=== PATIENT | male | born 1960 | race Caucasian/White ===

== ENCOUNTER 2017-10-28 06:00 | Day surgery (SDC) | payer OTHER ==
[2017-10-28] MEDS ORDERED: LIDOCAINE 1% 2 ML INJ ID PRN (06:12)
[2017-10-28] MEDS ORDERED: LR 1,000 ML IV ONE (06:12)
[2017-10-28] MEDS ORDERED: LIDOCAINE 1% 2 ML INJ ONE (06:23)
--- NOTE | 2017-10-28 06:56 | PDANEPAE ---
ANE History of Present Illness 57 year old male w/ PMHx of HTN and HLD presents for inguinal hernia repair. ANE Past Medical History - Cardiovascular History Hx Hypertension: Yes Hx Arrhythmias: No Hx Chest Pain: No Hx Coronary Artery / Peripheral Vascular Disease: No Hx CHF / Valvular Disease: No Hx Palpitations: No - Pulmonary History Hx COPD: No Hx Asthma/Reactive Airway Disease: No Hx Recent Upper Respiratory Infection: No Hx Oxygen in Use at Home: No Hx Sleep Apnea: No Sleep Apnea Screening Result - Last Documented: Positive - Neurologic History Hx Cerebrovascular Accident: No Hx Seizures: No Hx Dementia: No - Endocrine History Hx Diabetes: No Hypothyroid: No Hyperthyroid: No Obesity: no - Renal History Hx Renal Disorders: No - Liver History Hx Hepatic Disorders: No - Neurological & Psychiatric Hx Hx Neurological and Psychiatric Disorders: No - Cancer History Hx Cancer: No - Congenital Disorder History Hx Congenital Disorders: No - GI History GERD: no Hx Gastrointestinal Disorders: Yes Gastrointestinal History Comment: polyp removed - Other Health History Other Health History: eye pressures being monitored r/t to increased pressure - Chronic Pain History Chronic Pain: No - Surgical History Prior Surgeries: colonoscopy ANE Review of Systems Review of systems is: negative Review of Systems: - Exercise capacity Exercise capacity: >=4 METS METS (RN): 6 METS ANE Patient History - Allergies Allergies/Adverse Reactions: No Known Allergies Allergy (Verified 10/16/17 11:20) - Home Medications Home medications: home medication list seen and reviewed Home Medications: Amlodipine Besylate 10/16/17 [Last Taken 10/27/17 08:00] Benazepril HCl 10/16/17 [Last Taken 10/27/17 08:00] Simvastatin 10/16/17 [Last Taken 10/27/17 20:00] Aspirin 81mg (*) 10/28/17 [Last Taken 10/21/17] - NPO status NPO Status: no food or drink >8 hours - Anes Hx Anes Hx: no prior problems - Smoking Hx Smoking Status: Never smoked Marijuana use: No - Alcohol Use Alcohol Use: Occasionally - Family Anes Hx Family Anes Hx: neg - N/A Family Hx Anesthesia Complications: none ANE Labs/Vital Signs - Vital Signs Vital Signs: reviewed preoperatively; see RN documention for details Height: 187.96 cm Weight: 82.554 kg ANE Physical Exam - Airway Neck exam: FROM Mallampati Score: Class 2 Mouth exam: normal dental/mouth exam - Pulmonary Pulmonary: no respiratory distress - Cardiovascular Cardiovascular: regular rate and rhythym - ASA Status ASA Status: II ANE Anesthesia Plan Anesthesia Plan: general endotracheal anesthesia Total IV Anesthesia: No
[2017-10-28] MEDS ORDERED: BUPIVACAINE 0.5% 30 ML SDV ONE (07:01)
[2017-10-28] MEDS ORDERED: MIDAZOLAM 2 MG/2 ML VIAL IVP ONE (07:08)
[2017-10-28] MEDS ORDERED: PROPOFOL 200 MG/20 ML VIAL ONE (07:16)
[2017-10-28] MEDS ORDERED: fentaNYL 100 MCG/2 ML INJ ONE (07:16)
[2017-10-28] MEDS ORDERED: LIDOCAINE 2% 5 ML SDV ONE (07:17)
[2017-10-28] MEDS ORDERED: ROCURONIUM 50 MG/5 ML VIAL ONE (07:17)
[2017-10-28] MEDS ORDERED: ONDANSETRON 4 MG/2 ML VIAL ONE (07:22)
[2017-10-28] MEDS ORDERED: SUGAMMADEX SODIUM 200 MG/2 ML VIAL IVP ONE (07:22)
[2017-10-28] MEDS ORDERED: DEXAMETHASONE 4 MG/ML VIAL ONE (07:22)
[2017-10-28] MEDS ORDERED: ceFAZolin 2 GM/SWFI 2 GM/20 ML SYR IVP ONE (07:27)
--- NOTE | 2017-10-28 07:28 | PDHPUP ---
History & Physical Update H&P update statement: This history and physical update is based on an assessment of the patient which was completed after admission or registration (within 24 hours), but prior to the surgery/procedure. H&P update: H&P reviewed & patient examined, no change in patient's condition since H&P completed
[2017-10-28] MEDS ORDERED: LR 500 ML IV PRN (07:41)
[2017-10-28] MEDS ORDERED: ONDANSETRON 4 MG/2 ML VIAL IVP PRN (07:41)
[2017-10-28] MEDS ORDERED: DIAZEPAM 5 MG/ML 1 ML SYR IVP PRN (07:41)
[2017-10-28] MEDS ORDERED: HYDROmorphONE/DILAUDID 1 MG/ML INJ IVP PRN (07:41)
[2017-10-28] MEDS ORDERED: oxyCODONE IR 5 MG TAB PO PRN (07:41)
[2017-10-28] MEDS ORDERED: fentaNYL 100 MCG/2 ML INJ IVP PRN (07:41)
[2017-10-28] MEDS ORDERED: ACETAMINOPHEN 500 MG TAB PO PRN (07:41)
[2017-10-28] MEDS ORDERED: NALOXONE HCL 0.4 MG/ML INJ IVP PRN (07:41)
--- NOTE | 2017-10-28 08:42 | POSTOPPROG ---
Post Op Note Date of Operation: 10/28/17 Surgeon: Magdiel Kenny Anesthesiologist: Dr. Lopez Anesthesia: GET(General Endotracheal) Pre-op Diagnosis: BIH Post-op Diagnosis: BIH Procedure: TEP BIHR Inf/Abcess present in the surg proc area at time of surgery?: No EBL: Minimal
[2017-10-28] MEDS ORDERED: oxyCODONE IR 5 MG TAB ONE (10:08)
[2017-10-28 10:23] VITALS: BP 128/83
--- NOTE | 2017-10-28 13:40 | GOP ---
[f rep st] OPERATIVE REPORT DATE OF OPERATION: 10/28/2017 SURGEON: Gm Kenny MD ANESTHESIA: General endotracheal anesthesia. ANESTHESIOLOGIST: Murray Lopez MD PREOPERATIVE DIAGNOSIS: Bilateral inguinal hernia. POSTOPERATIVE DIAGNOSIS: Bilateral inguinal hernia. PROCEDURE PERFORMED: Laparoscopic totally extraperitoneal bilateral inguinal hernia repair. FINDINGS: The patient had a moderate indirect and moderate lipoma on the left and a small indirect w ith a moderate lipoma on the right. ESTIMATED BLOOD LOSS: 20 cc. INDICATIONS: A 57-year-old male with a history of groin bulge. Risks and benefits of the procedure w ere discussed with the patient, questions were answered, and they wished to proceed. DESCRIPTION OF PROCEDURE: The patient was placed in the supine position. After the induction of adeq uate general endotracheal anesthesia, the patient was prepped and draped in the sterile surgical fash ion. Marcaine 0.5% was injected in the infra-umbilical area and a transverse incision was made, appro ximately 10 mm in length. This was carried down to the subcutaneous tissue with blunt dissection. The anterior fascia was exposed and incised just lateral to the midline. The preperitoneal space was the n created bluntly, and the balloon dissector introduced. Once this was appropriately positioned, it w as inflated under direct vision using the laparoscope. Once adequate dissection had been obtained, th e balloon was deflated and withdrawn. The balloon stabilizer was then placed into the same preperiton eal plane. The balloon stabilizer was then inflated. The preperitoneal space was then insufflated with carbon dioxide. Two more trocars were placed, both in the midline in the supraumbilical and mid lower abdomen sites. These were both placed under direct vision after injecting 0.5% Marcaine for local anesthesia. Blunt dissection was used to expose Vanda lbach's triangle. Nikhil's ligament was then exposed and the femoral space explored. Next the space o f Bogros was cleared laterally. The cord structures were seen and preserved, and the preperitoneal fa t was retracted in a [id number] fashion. The hernia sac was then retracted in a similar fashion. A shaped mesh was then introduced through the 11-mm trocar and oriented appropriately. It was positio susan to ensure coverage of the direct, indirect, and femoral spaces. The peritoneum and preperitoneal fat was placed over the bottom edge of the mesh to ensure placement. The carbon dioxide was then allo wed to escape and the mesh observed to ensure positioning. All trocars were then removed under direct vision. Good hemostasis was noted. The fascia at the 11-mm trocar site was closed with 0 Vicryl in an interrupted fashion. The wounds we re thoroughly irrigated, and the skin was closed with 5-0 Monocryl in a subcuticular stitch. The woun ds were sterilely dressed. The patient was extubated and taken to the post-anesthesia care unit in st able condition. COMPLICATIONS: None. DRAINS: None. ADDENDUM: A large Bard 3DMax mesh was used on each side. /[id number]/MODL
--- NOTE | 2017-10-28 22:56 | POSTANESTH ---
Post Anesthetic Evaluation Cardiovascular Status: Normal, Stable, Similar to Pre-Op Cond Respiratory Status: Normal, Stable, Similar to Pre-op Cond. Level of Consciousness/Mental Status: Can Participate in Eval, Alert and Oriented Pain Control: Adequate, Prn Tx Ordered Nausea/Vomiting Control: Adequate, Prn Tx Ordered Complications Possibly Related to Anesthesia: None Noted
== END 2017-10-28 10:40 | disposition home or self-care (01) ==
LOC: FSGY 06:00
PROVIDERS: ATTEND Surgery
PROC: 0YUA4JZ Supplement Bilateral Inguinal Region with Synthetic Substitute, Percutaneous Endoscopic Approach (ICD-10-PCS; principal; 2017-10-28 07:30)
DX: K40.20 Bilateral inguinal hernia, without obstruction or gangrene, not specified as recurrent (principal); I10 Essential (primary) hypertension
CPT/HCPCS: C1727; C1781; J0690; J1100; J2250; J2405; J2704; J3010